=== PATIENT | female | born 2000 | race Caucasian/White ===

== ENCOUNTER → 2019-08-18 | Outpatient (REF) | payer BC ==
[2019-08-21 14:51] LABS: HPV HYBRID CAPTURE II Negative (Negative)
== END ==
LOC: M LAB LCGH 11:33
PROVIDERS: ATTEND Nurse Practitioner Adult Health
DX: Z12.4 Encounter for screening for malignant neoplasm of cervix (principal)
CPT/HCPCS: 87624; G0123